=== PATIENT | male | born 1990 | race Caucasian/White ===

== ENCOUNTER 2024-02-10 21:30 | Emergency (ER) | payer BC ==
[~2024-02-10] VITALS: Ht 187.9 cm; Wt 91.8 kg
[~2024-02-10 21:30] MED LIST: ANAPROX DS550 MG PO; ATENOLOL50 MG PO; BACTRIM DS 8001 TA1 PO; FENOFIBRATE160 MG PO; GLUCTESTSTRIP; HUMALOG100 U/ML SC; HYDROCODONE BIT1 T11 PO; KEFLEX500 MG PO; LEVEMIR10 ML SC; LISINOPRIL20 MG PO; LISINOPRIL5 MG PO; LOMOTIL 0.025 M1 TA1 PO; METFORMIN1000 MG PO; METFORMIN500 MG PO; NAPROSYN500 MG PO; NEURONTIN300 MG PO; NKHM PO; PRINIVIL10 MG PO; SIMVASTATIN40 MG PO; VICODIN 5/500 505 MG PO; ZOFRAN ODT4 MG SL; ZOFRAN4 MG PO
[2024-02-10] MEDS ORDERED: METOPROLOL SUCC50 M1 PO (21:49)
[2024-02-10] MEDS ORDERED: LISINOPRIL40 MG PO (21:49)
[2024-02-10 23:14] LABS: BILIRUBIN Negative (Negative); BLOOD 1+ (Negative); CLARITY Clear (Clear); COLOR Yellow (Yellow); GLUCOSE 3+ (Negative); KETONE Negative (Negative); LEUKO ESTERASE Negative (Negative); NITRITE Negative (Negative); UROBILINOGEN 0.2 E.U./dl (0.0-1.0)
[2024-02-10 23:26] LABS: RBC 16-20 rbc/hpf (0-2)
[2024-02-10 23:27] LABS: BACTERIA TRACE; MUCOUS 1+
== END 2024-02-10 23:37 | disposition home or self-care (01) ==
LOC: ED 21:30
PROVIDERS: Internal Medicine
DX: R33.9 Retention of urine, unspecified (principal); E11.9 Type 2 diabetes mellitus without complications; F17.200 Nicotine dependence, unspecified, uncomplicated; Z91.030 Bee allergy status; Z91.048 Other nonmedicinal substance allergy status; Z91.040 Latex allergy status; Z91.018 Allergy to other foods; Z79.4 Long term (current) use of insulin; Z79.899 Other long term (current) drug therapy

== ENCOUNTER 2024-02-12 04:21 | Emergency (ER) | payer BC ==
[~2024-02-12] VITALS: Ht 187.9 cm; Wt 93.9 kg
[~2024-02-12 04:21] MED LIST changes: +LISINOPRIL40 MG PO; +METOPROLOL SUCC50 M1 PO
[2024-02-12] MEDS ORDERED: Lopressor25 MG PO (04:59)
[2024-02-12] MEDS ORDERED: TRAMADOL HCL50 MG PO (04:59)
[2024-02-12] MEDS ORDERED: Dexamethasone Sodium Phospha 20 MG/5 ML VIAL IM ONE (05:15)
== END 2024-02-12 05:55 | disposition home or self-care (01) ==
LOC: ED 04:21
DX: R33.9 Retention of urine, unspecified (principal); M79.604 Pain in right leg; I10 Essential (primary) hypertension; E11.9 Type 2 diabetes mellitus without complications; Z79.4 Long term (current) use of insulin; F17.200 Nicotine dependence, unspecified, uncomplicated; Z91.030 Bee allergy status; Z91.040 Latex allergy status; Z88.8 Allergy status to other drugs, medicaments and biological substances; Z91.018 Allergy to other foods

== ENCOUNTER 2024-02-15 10:19 | Emergency (ER) | payer BC ==
[~2024-02-15] VITALS: Ht 187.9 cm; Wt 93.9 kg
[~2024-02-15 10:19] MED LIST changes: +Lopressor25 MG PO; +TRAMADOL HCL50 MG PO
[2024-02-15] MEDS ORDERED: Ketorolac Tromethamine 30 MG/ML VIAL IM ONE (11:25)
[2024-02-15] MEDS ORDERED: METHOCARBAMOL500 M1 PO (13:57)
[2024-02-15] MEDS ORDERED: PREDNISONE20 M1 PO (13:57)
== END 2024-02-15 14:03 | disposition home or self-care (01) ==
LOC: ED 10:19
DX: M51.27 Other intervertebral disc displacement, lumbosacral region (principal); I10 Essential (primary) hypertension; E11.9 Type 2 diabetes mellitus without complications; Z79.4 Long term (current) use of insulin; Z91.030 Bee allergy status; Z91.040 Latex allergy status; Z91.018 Allergy to other foods; Z88.8 Allergy status to other drugs, medicaments and biological substances; F17.200 Nicotine dependence, unspecified, uncomplicated